=== PATIENT | male | born 1985 | race Caucasian/White ===

== ENCOUNTER 2017-09-18 18:48 | Emergency (ER) | payer BC ==
--- NOTE | 2017-09-18 19:21 | PDOC ---
Rapid Medical Evaluation Time Seen by Provider: 09/18/17 19:21 Medical Evaluation: 09/18/17 19:21 32 year old male with history of gastritis and IBS, presents with one week of left flank pain, worse with coughing or sneezing. No nausea/vomiting, fevers/ chills, dysuria, or any other symptoms. V/s unremarkable. Alert, oriented, appears uncomfortable. RRR, S1/S2. Lungs CTAB. No abdominal tenderness. Minimal left CVA tenderness. UA/culture Basic labs To Main ED for further evaluation
[2017-09-18 19:24] VITALS: BP 131/75; PULSE 84; TEMP 98.1; BMI 37.0
[2017-09-18 19:39] LABS: URINE APPEARANCE CLEAR; URINE BILIRUBIN NEGATIVE (<2.0 mg/dL); URINE BLOOD NEGATIVE (NEGATIVE); URINE COLOR YELLOW; URINE GLUCOSE (UA) NEGATIVE (NEGATIVE); URINE KETONE NEGATIVE (NEGATIVE); URINE LEUK ESTERASE NEGATIVE (NEGATIVE); URINE NITRITE NEGATIVE (NEGATIVE); URINE PROTEIN NEGATIVE (NEGATIVE); URINE UROBILINOGEN NEGATIVE mg/dL (0.2-1.0)
[2017-09-18 23:06] LABS: BASO % 0.7 % (0-2.0); HEMATOCRIT 42.6 % (35.4-49); HEMOGLOBIN 14.1 GM/dL (11.7-16.9); LYMPH % 37.6 % (8-40); MCH 28.8 pg (25.7-33.7); MCHC 33.2 g/dl (32.0-35.9); MEAN CELL VOLUME 86.6 fl (80-96); MEAN PLT VOLUME 8.2 fl (7.5-11.1); MONO % 7.4 % (3.8-10.2); NEUT % 50.3 % (42.8-82.8); PLATELET COUNT 318 K/MM3 (134-434); RBC 4.92 M/mm3 (4.00-5.60); RDW 13.4 % (11.9-15.9)
[2017-09-19 00:05] LABS: ALBUMIN 3.8 g/dl (3.4-5.0); ANION GAP 6 (8-16); BLOOD UREA NITROGEN 12 mg/dL (7-18); CALCIUM 8.7 mg/dL (8.5-10.1); CHLORIDE 105 mmol/L (98-107); CO2 29 mmol/L (21-32); CREATININE 0.9 mg/dL (0.7-1.3); GLUCOSE,RANDOM 129 mg/dL (74-106); POTASSIUM 4.3 mmol/L (3.5-5.1); SGOT/AST 40 U/L (15-37); SGPT/ALT 76 U/L (12-78); SODIUM 140 mmol/L (136-145); TOT PROT 7.7 g/dl (6.4-8.2)
[2017-09-19 00:16] LABS: ALK PHOS 94 U/L (45-117); BILIRUBIN,TOTAL 0.2 mg/dL (0.2-1.0)
--- NOTE | 2017-09-19 00:20 | PDOC ---
History of Present Illness - General Chief Complaint: Pain Stated Complaint: PAIN, ACUTE Time Seen by Provider: 09/18/17 19:21 - History of Present Illness Initial Comments: 09/19/17 00:20 Mr. Slade is a 32 yo male w/ pmh of pre-diabetes who presents for evaluation of 1 week history of left sided flank pain he reports is exacerbated by sneezing , coughing, or moving. He can recall no trauma to the area and has been otherwise symptom free. The patient denies chest pain, shortness of breath, headache and dizziness. Denies fever, chills, nausea, vomit, diarrhea and constipation. Denies dysuria, frequency, urgency and hematuria. Allergies: Past History - Past Medical History Allergies/Adverse Reactions: Allergies Allergy/AdvReac Type Severity Reaction Status Date / Time No Known Allergies Allergy Verified 09/18/17 19:22 Home Medications: Ambulatory Orders NK [No Known Home Medication] 09/18/17 COPD: No GI Disorders: Yes (ibs,gastritis) - Suicide/Smoking/Psychosocial Hx Smoking History: Never smoked Review of Systems - Review of Systems Comments:: 09/19/17 00:24 GENERAL/CONSTITUTIONAL: No fever or chills. No weakness. HEAD, EYES, EARS, NOSE AND THROAT: No change in vision. No ear pain or discharge. No sore throat. CARDIOVASCULAR: No chest pain or shortness of breath RESPIRATORY: No cough, wheezing, or hemoptysis. GASTROINTESTINAL: No nausea, vomiting, diarrhea or constipation. GENITOURINARY: No dysuria, frequency, or change in urination. MUSCULOSKELETAL: +Left sided flank pain as described. SKIN: No rash NEUROLOGIC: No headache, vertigo, loss of consciousness, or change in strength/ sensation. ENDOCRINE: No increased thirst. No abnormal weight change HEMATOLOGIC/LYMPHATIC: No anemia, easy bleeding, or history of blood clots. ALLERGIC/IMMUNOLOGIC: No hives or skin allergy. *Physical Exam - Vital Signs Last Vital Signs Temp Pulse Resp BP Pulse Ox 98.1 F 84 20 131/75 99 09/18/17 19:23 09/18/17 19:23 09/18/17 19:23 09/18/17 19:23 09/18/17 19:23 - Physical Exam Comments: 09/19/17 00:25 GENERAL: Awake, alert, and fully oriented, in no acute distress HEAD: No signs of trauma, normocephalic, atraumatic EYES: PERRLA, EOMI, sclera anicteric, conjunctiva clear ENT: Auricles normal inspection, hearing grossly normal, nares patent, oropharynx clear without exudates. Moist mucosa NECK: Normal ROM, supple, no lymphadenopathy, JVD, or masses LUNGS: No distress, speaks full sentences, clear to auscultation bilaterally HEART: Regular rate and rhythm, normal S1 and S2, no murmurs, rubs or gallops, peripheral pulses normal and equal bilaterally. ABDOMEN: Soft, nontender, normoactive bowel sounds. No guarding, no rebound. No masses EXTREMITIES: Normal inspection, Normal range of motion, no edema. No clubbing or cyanosis. NEUROLOGICAL: Cranial nerves II through XII grossly intact. Normal speech, normal gait, no focal sensorimotor deficits SKIN: Warm, Dry, normal turgor, no rashes or lesions noted. Moderate Sedation - Procedure Monitoring Vital Signs: Vital Signs Temp Pulse Resp BP Pulse Ox 98.1 F 84 20 131/75 99 09/18/17 19:23 09/18/17 19:23 09/18/17 19:23 09/18/17 19:23 09/18/17 19:23 ED Treatment Course - LABORATORY CBC & Chemistry Diagram: 09/18/17 21:22 09/18/17 21:22 - ADDITIONAL ORDERS Additional order review: Laboratory Results 09/18/17 19:25 Urine Color Yellow Urine Appearance Clear Urine pH 5.0 Ur Specific [place] 1.025 Urine Protein Negative Urine Glucose (UA) Negative Urine Ketones Negative Urine Blood Negative Urine Nitrite Negative Urine Bilirubin Negative Urine Urobilinogen Negative Ur Leukocyte Esterase Negative 09/18/17 21:22 RBC 4.92 MCV 86.6 MCHC 33.2 RDW 13.4 MPV 8.2 Neutrophils % 50.3 Lymphocytes % 37.6 Monocytes % 7.4 Eosinophils % 4.0 Basophils % 0.7 Medical Decision Making - Medical Decision Making 09/19/17 00:46 Mr. Slade is a 32 yo male w/ pmh as described who presents for evaluation of Left flank pain for 1 week. Labs grossly wnl. Unable to reproduce pain on palpation. 09/19/17 01:22 Patient very concerned about pain although labs grossly wnl. CT abdomen/pelvis ordered to r/o acute process. 09/19/17 02:39 CT negative for acute process. Discharging patient to home for outpatient follow -up. Patient verbalized understanding and agreement and will follow-up with pcp for further evaluation. *DC/Admit/Observation/Transfer Diagnosis at time of Disposition: Musculoskeletal pain - Discharge Dispostion Disposition: HOME - Referrals Referrals: Anirudh Grider MD [Primary Care Provider] - - Patient Instructions Printed Discharge Instructions: DI for Flank Pain Additional Instructions: Please return to ED if any increase in pain, fever, chills, or other concerning symptoms. Follow-up with primary care provider as discussed for further evaluation. - Post Discharge Activity
[2017-09-19] MEDS ORDERED: KETOROLAC TROMETHAMINE 15 MG/ML VIAL IVPUSH ONE (00:58)
--- NOTE | 2017-09-19 02:42 | PDOC ---
Attending Attestation - Resident Resident Name: Chris Cherry - ED Attending Attestation I have performed the following: I have examined & evaluated the patient, The case was reviewed & discussed with the resident, I agree w/resident's findings & plan, Exceptions are as noted - HPI HPI: 09/19/17 02:58 The patient is a 32 year old male with a significant PMH of pre-diabetes who presents to the emergency department with left flank pain beginning approximately 1 week ago. He reports his left flank pain is aggravated by cough and positional changes. The patient denies recent trauma. Denies heavy lifting. 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 Denies N/V. He denies dysuria, urinary frequency, urgency, and hematuria. He denies chest pain or shortness of breath. He denies fevers or chills. Allergies:NKA PCP: Dr. Grider - Physicial Exam PE: 09/19/17 02:58 GENERAL: Awake, alert, and fully oriented, in no acute distress HEAD: No signs of trauma EYES: PERRLA, EOMI, sclera anicteric, conjunctiva clear ENT: Auricles normal inspection, hearing grossly normal, nares patent, oropharynx clear without exudates. Moist mucosa NECK: Normal ROM, supple, no lymphadenopathy, JVD, or masses LUNGS: Breath sounds equal, clear to auscultation bilaterally. No wheezes, and no crackles HEART: Regular rate and rhythm, normal S1 and S2, no murmurs, rubs or gallops ABDOMEN: Soft, nontender, normoactive bowel sounds. No guarding, no rebound. No masses. No CVAT. EXTREMITIES: Normal range of motion, no edema. No clubbing or cyanosis. No cords , erythema, or tenderness BACK: No midline spinal tenderness in cervical/thoracic/lumbar region NEUROLOGICAL: Normal speech, cranial nerves intact, negative pronator drift, 5/ 5 strength in all 4 extremities, normal sensation to light touch in all 4 extremities, normal cerebellar exam, normal gait, normal reflexes and tone SKIN: Warm, Dry, normal turgor, no rashes or lesions noted. - Medical Decision Making 09/19/17 02:37 32-year-old male presents emergency Department with atraumatic left flank pain. Vitals within normal limits. Exam is unremarkable, with no abd/flank ttp, pt reports pain is "inside." Likely MSK pain as it is worse when he sneezes or coughs, although pt is convinced something is going on "internally." As such a CTAP was offered which pt agreed to. CTAP along with labs and UA are wnl. Likely MSK pain. Reports mild improvement with toradol. Requests DC home, will f /u with Dr. Grider within 1 week. I discussed the physical exam findings, ancillary test results and final diagnoses with the patient. I answered all of the patient's questions. The patient was satisfied with the care received and felt comfortable with the discharge plan and treatment plan. The patient will call their primary care physician within 24 hours to arrange follow-up and will return to the Emergency Department with any new, persistent or worsening symptoms. Discharge Disposition - Diagnosis Flank pain - Discharge Dispostion Disposition: HOME Condition at time of disposition: Stable Decision to Admit order: No - Referrals Referrals: Anirudh Grider MD [Primary Care Provider] - - Patient Instructions Printed Discharge Instructions: DI for Flank Pain Additional Instructions: Please return to ED if any increase in pain, fever, chills, or other concerning symptoms. Follow-up with Dr. Grider within 1 week as discussed for further evaluation. - Post Discharge Activity Work/School Note: Back to Work
[2017-09-19] MEDS ORDERED: KETOROLAC TROMETHAMINE 15 MG/ML VIAL ONE (03:00)
== END 2017-09-19 03:05 | disposition home or self-care (01) ==
LOC: JER 18:48
PROC: 3E0333Z Introduction of Anti-inflammatory into Peripheral Vein, Percutaneous Approach (ICD-10-PCS; principal; 2017-09-18)
DX: R10.32 Left lower quadrant pain (principal)
CPT/HCPCS: 36415; 74177-TC; 80053; 81003; 85025; 87086; 99282-25